=== PATIENT | male | born 1965 | race Caucasian/White ===

== ENCOUNTER 2024-08-04 09:08 | Outpatient (AMB) | payer OTHER, SELFPAY ==
[2024-08-04 09:26] VITALS: BP 163/79; PULSE 78; O2SAT 99
--- NOTE | 2024-08-04 09:26 | MHC.OFFVIS ---
Vital Signs 08/04/24 09:26 Weight 154 lb BP 163/79 H Blood Pressure Location Lt brachial Position Sitting Pulse 78 Pulse Source Pulse Oximeter Pulse Oximetry (%) 99 Oxygen Delivery Method Room Air Intake Visit Reasons: Low Back Pain Major Sales Associate Required: No Allergies No Known Allergies Allergy (Verified 08/04/24 09:27) Medication List - Last Reconciled 08/04/24 by Shilpi Monsivais, SAW GRINDER ergocalciferol (vitamin D2) 1,250 mcg PO QWEEK hydrochlorothiazide 12.5 mg PO DAILY hydrocodone-acetaminophen 10-325 mg 1 tab PO Q4H PRN morphine ER 15 mg PO DAILY PRN rosuvastatin 20 mg PO DAILY tizanidine 2 - 4 mg PO DAILY valacyclovir 500 mg PO DAILY HPI Comments Details: Casie is very pleasant 58 years old female who presents in my office with complains on pain in the lower back with radiation of the pain into the thoracic spine as well as pain in bilateral knees. She reports that this pain started many years ago in . She relates the pain to minor trauma. She also reports that she had very weak memory since childhood. She reports that bending forward hurts more than bending backwards. She also reports aggravation of the pain while walking. She reports that pain in the back radiates into bilateral hips when she is walking. She is working part-time she has her own business she can not sleep normally because of her pain can not do activities of daily living, she can take care of herself but she can not function normally. She reports that heat applications make her pain better. She has a history of L4-5 S1 fusion in 1985. In terms of tissue damage he reports her pain as pounding, shooting, stabbing, lancinating, sharp, hot burning, tingling, stinging, hurting, aching, heavy, exhausting sensation. She is currently is prescribed hydrocodone 03/27/2025 3 to 5 times a day as well as morphine ER which she takes intermittently before bed. She had an MRI of her lumbar spine performed she says 1-2 years ago. She does not remember exactly when. She had physical therapy years ago she tried pool physical therapy and physical therapy on the ball she reports no help and pain aggravation from physical therapy. She reports that Dr. Domínguez in [place] was performing some injections for her however she does not remember the name of the injections. She describes something which could be a trial of spinal cord stimulator she says it was more than 10 years ago. She reports it did not help her pain. Her past medical history significant for hypertension and she is under investigation for lesion in the lung. Her surgery is only spinal fusion. She stopped smoking cigarettes 2 years ago. She drinks 2 drinks over the weekend Romeo Coke. She drinks soda and she drinks coffee. She denies recreational drugs. Review of Systems Const All systems reviewed & are unremarkable except as noted in HPI and below ENT Reports Normal hearing present Neuro Reports Normal hearing present, Denies Abnormal speech present, Denies confusion and Denies Sensory deficit (Neuro) Psych Denies confusion Physical Exam Vital Signs: Last Vital Signs Pulse 78 08/04/24 09:26 BP 163/79 H 08/04/24 09:26 Pulse Ox 99 08/04/24 09:26 Oxygen Delivery Method Room Air 08/04/24 09:26 Const General: no acute distress; No confusion Orientation/consciousness: patient oriented x3 and No confusion Eyes General: appearance normal, both eyes and all related structures Pupils: Equal, round and reactive pupils present EOM: EOMs intact bilaterally Neck Neck: Yes full ROM Chest Chest palpation & inspection: normal inspection of the chest Resp Effort & Inspection: normal respiratory effort, able to speak in complete sentences, normal respiratory pattern, no audible wheezes and no cough Cardio Jugular venous distension: no JVD GI Inspection: Yes normal to inspection Back/Spine/Pelvis Other: Very well-healed scar in the projection of the lumbar spine spinous processes L3-L4 L5 and S1 is observable on the patient's back. The scar is very well-healed. Flexing forward and flexing backwards aggravate her pain. Neuro General: patient oriented x3, gait normal and No confusion Cranial nerves: Yes CN's II-XII intact bilaterally, Yes Equal, round and reactive pupils present, Yes Normal hearing present and Yes Ability to bilaterally elevate shoulders present Speech: No Abnormal speech present Gait exam (Neuro): Normal gait present Motor exam (neuro): 5/5 motor strength present throughout Sensory Exam: No Sensory deficit (Neuro) Extrem General: No pedal edema Psych Speech and movement: Normal speech and movement present Affect: normal affect Attitude: cooperative Thought process: Normal thought process present Thought content: Normal thought content present Insight: Good insight present (Psych) Judgement: Good judgement present (Psych) Assessment & Plan Assessment & Plan (1) Postlaminectomy syndrome: Code(s): M96.1 - Postlaminectomy syndrome, not elsewhere classified Category: Medical (2) Chronic pain syndrome: Code(s): G89.4 - Chronic pain syndrome Category: Medical Plan This patient is most likely suffering from postlaminectomy syndrome. She wants to become a member of chronic opioid program. She was given opioid consent, opioid contract, opioid information page. She also was explained that she is in the office of interventional pain management and we would like to try interventional modalities to treat her pain. She will be given a brochure [employer] to pass through psychological evaluation. After she will past psychological evaluation I would like to try Nevro spinal cord stimulator on her. If she decides after reading our opioid information pages to become a member of chronic opioid program she needs to come here for full Opioid Assessment appointment which will last 1 hour. If she decides against that she would be seen after psychological evaluation in conjunction of the trial of spinal cord stimulator. I also requested her to bring me the disc from the MRI she had in the [place] facility. Coding Level of Care Code New Pt Level 3 (21097) Diagnoses Postlaminectomy syndrome M96.1 Chronic pain syndrome G89.4
== END 2024-08-04 09:53 | disposition home or self-care (01) ==
PROVIDERS: Visit Provider Anesthesiology
DX: M96.1 Postlaminectomy syndrome, not elsewhere classified (principal); G89.4 Chronic pain syndrome
CPT/HCPCS: 99203

== ENCOUNTER → 2024-08-04 09:08 | Outpatient (BNVA) | payer OTHER, SELFPAY | PROVIDERS: Visit Provider Anesthesiology ==